=== PATIENT | male | born 1945 | race Caucasian/White ===

== ENCOUNTER 2017-05-15 23:08 | Observation (INO) | payer MEDICARE ==
[~2017-05-15] VITALS: Ht 172.7 cm; Wt 90.7 kg
--- NOTE | 2017-05-15 23:13 | ER Report ---
History and Physical Time Seen By MD: 23:12 HPI/ROS CHIEF COMPLAINT: Right lower quadrant abdominal pain HISTORY OF PRESENT ILLNESS: 71-year-old male presents ambulatory to the ER complaining of abdominal pain since last night. He delivers paper route. He was unable to go last night. He presents to the ER tonight after several episodes of vomiting and dry heaves. He denies fever or chills. He denies dysuria, frequency or hematuria. REVIEW OF SYSTEMS: Respiratory: No cough, no dyspnea. Cardiovascular: No chest pain, no palpitations. Gastrointestinal: As above Musculoskeletal: No back pain. Allergies: Uncoded Allergies: TRILANE (Allergy, Unknown, 05/15/17) Home Meds Active Scripts Amoxicillin/Pot Clav 875-125 Mg Tab (AUGMENTIN 875-125 TABLET) 1 Each Tablet, 1 TAB PO Q12H, #4 TAB Prov:ANYA IRVIN MD 05/16/17 Hydrocodone Bit/Acetaminophen (NORCO 5-325 TABLET) 1 Each Tablet, 1 EACH PO Q4H Y for PAIN, #30 TAB Prov:ANYA IRVIN MD 05/16/17 Ketorolac Tromethamine (KETOROLAC TROMETHAMINE) 10 Mg Tab, 10 MG PO Q6H, #12 TAB Prov:ANYA IRVIN MD 05/16/17 Reported Medications Albuterol Sulfate (PROVENTIL HFA) 6.7 Gm Inh, 1-2 PUFF INH 3-4XD, INH 05/16/17 Ibuprofen (IBUPROFEN) 200 Mg Capsule, 1 CAP PO Q6H, CAPSULE 05/15/17 Fluticasone/Salmeterol (ADVAIR 100-50 DISKUS) 1 Each Disk.w.dev, 1 EACH IH 05/15/17 Reviewed Nurses Notes: Yes Old Medical Records Reviewed: Yes Constitutional Vital Sign - Last 24 Hours 05/15/17 05/15/17 05/15/17 05/15/17 23:08 23:18 23:19 23:23 Temp 98.7 Pulse ??? 89 83 Resp 20 B/P (MAP) 130/91 (104) 130/91 Pulse Ox 93 93 O2 Delivery Room Air 05/15/17 05/15/17 05/15/17 05/16/17 23:38 23:39 23:53 00:00 Pulse 87 183 Resp 29 16 B/P (MAP) 145/72 (96) 127/76 (93) Pulse Ox 95 91 05/16/17 05/16/17 05/16/17 05/16/17 00:05 00:08 00:20 00:40 Pulse 89 Resp 29 B/P (MAP) 124/73 (90) ???/??? (1665) 131/80 (97) Pulse Ox 95 05/16/17 05/16/17 05/16/17 00:43 00:58 01:00 Pulse 89 ??? Resp 30 14 B/P (MAP) 122/72 (89) Pulse Ox 96 100 Physical Exam General Appearance: The patient is alert, has no immediate need for airway protection and no current signs of toxicity. Eyes: Pupils equal and round no injection. Respiratory: Chest is non tender, lungs are clear to auscultation. Cardiac: regular rate and rhythm Gastrointestinal: Abdomen is moderate right lower quadrant tenderness, positive rebound and guarding no masses, bowel sounds normal. Musculoskeletal: Neck: Neck is supple and non tender. Extremities have full range of motion and are non tender. Skin: No rashes or lesions. DIFFERENTIAL DIAGNOSIS: After history and physical exam differential diagnosis was considered for abdominal pain including but not limited to appendicitis, cholecystitis, gastritis and urinary tract infection. Medical Decision Making Data Points Result Diagram: 05/15/17232805/15/172328 Laboratory Hematology Test 05/15/17 23:29 Red Blood Count 5.91 M/uL (4.00-5.60) Mean Corpuscular Volume 87.7 fL (80.0-96.0) Mean Corpuscular Hemoglobin 29.7 pg (26.0-33.0) Mean Corpuscular Hemoglobin Concent 33.9 g/dL (32.0-36.0) Red Cell Distribution Width 12.9 % (11.5-14.5) Mean Platelet Volume 8.3 fL (7.2-11.1) Neutrophils (%) (Auto) 81.1 % (39.4-72.5) Lymphocytes (%) (Auto) 9.3 % (17.6-49.6) Monocytes (%) (Auto) 9.3 % (4.1-12.4) Eosinophils (%) (Auto) 0.0 % (0.4-6.7) Basophils (%) (Auto) 0.3 % (0.3-1.4) Nucleated RBC Relative Count (auto) 0.0 /100WBC Neutrophils # (Auto) 19.7 K/uL (2.0-7.4) Lymphocytes # (Auto) 2.3 K/uL (1.3-3.6) Monocytes # (Auto) 2.3 K/uL (0.3-1.0) Eosinophils # (Auto) 0.0 K/uL (0.0-0.5) Basophils # (Auto) 0.1 K/uL (0.0-0.1) Nucleated RBC Absolute Count (auto) 0.01 K/uL Peripheral Blood Smear Yes Y/N Urine Color [place] Urine Clarity Slightly-cloudy Urine pH 5.0 pH (4.8-9.5) Urine Specific [place] 1.026 Urine Protein 30 mg/dL (NEGATIVE) Urine Glucose (UA) Negative mg/dL (NEGATIVE) Urine Ketones Negative mg/dL (NEGATIVE) Urine Blood Negative (NEGATIVE) Urine Nitrite Negative (NEGATIVE) Urine Bilirubin Negative (NEGATIVE) Urine Urobilinogen Negative mg/dL (0.2-1.9) Urine Leukocyte Esterase Trace (NEGATIVE) Urine RBC None /HPF (0-2/HPF) Urine WBC 6 /HPF (0-5/HPF) Urine Squamous Epithelial Cells Few /LPF (</=FEW) Urine Bacteria Few /HPF (NONE-FEW) Urine Hyaline Casts Many /LPF (NONE-FEW) Urine Mucus Few /HPF (NONE-FEW) Sodium Level 135 mmol/L (137-145) Potassium Level 4.1 mmol/L (3.5-5.0) Chloride Level 103 mmol/L (98-107) Carbon Dioxide Level 18 mmol/L (22-30) Blood Urea Nitrogen 18 mg/dl (9-21) Creatinine 1.30 mg/dl (0.66-1.25) Glomerular Filtration Rate Calc 54.1 Random Glucose 142 mg/dl (75-110) Lactate 1.9 mmol/L (0.7-2.1) Calcium Level 9.4 mg/dl (8.4-10.2) Total Bilirubin 2.0 mg/dl (0.2-1.3) Aspartate Amino Transf (AST/SGOT) 22 U/L (0-35) Alanine Aminotransferase (ALT/SGPT) 37 U/L (0-56) Alkaline Phosphatase 95 U/L (0-126) C-Reactive Protein 15.9 mg/dl (<1.0) Total Protein 7.4 gm/dl (6.3-8.2) Albumin 4.2 g/dl (3.5-5.0) Amylase Level 69 U/L (0-110) Lipase 257 U/L (23-300) Chemistry Test 05/15/17 23:29 White Blood Count 24.3 k/uL (4.5-11.0) Red Blood Count 5.91 M/uL (4.00-5.60) Hemoglobin 17.5 g/dL (14.0-18.0) Hematocrit 51.8 % (42.0-52.0) Mean Corpuscular Volume 87.7 fL (80.0-96.0) Mean Corpuscular Hemoglobin 29.7 pg (26.0-33.0) Mean Corpuscular Hemoglobin Concent 33.9 g/dL (32.0-36.0) Red Cell Distribution Width 12.9 % (11.5-14.5) Platelet Count 249 K/uL (150-450) Mean Platelet Volume 8.3 fL (7.2-11.1) Neutrophils (%) (Auto) 81.1 % (39.4-72.5) Lymphocytes (%) (Auto) 9.3 % (17.6-49.6) Monocytes (%) (Auto) 9.3 % (4.1-12.4) Eosinophils (%) (Auto) 0.0 % (0.4-6.7) Basophils (%) (Auto) 0.3 % (0.3-1.4) Nucleated RBC Relative Count (auto) 0.0 /100WBC Neutrophils # (Auto) 19.7 K/uL (2.0-7.4) Lymphocytes # (Auto) 2.3 K/uL (1.3-3.6) Monocytes # (Auto) 2.3 K/uL (0.3-1.0) Eosinophils # (Auto) 0.0 K/uL (0.0-0.5) Basophils # (Auto) 0.1 K/uL (0.0-0.1) Nucleated RBC Absolute Count (auto) 0.01 K/uL Peripheral Blood Smear Yes Y/N Urine Color [place] Urine Clarity Slightly-cloudy Urine pH 5.0 pH (4.8-9.5) Urine Specific [place] 1.026 Urine Protein 30 mg/dL (NEGATIVE) Urine Glucose (UA) Negative mg/dL (NEGATIVE) Urine Ketones Negative mg/dL (NEGATIVE) Urine Blood Negative (NEGATIVE) Urine Nitrite Negative (NEGATIVE) Urine Bilirubin Negative (NEGATIVE) Urine Urobilinogen Negative mg/dL (0.2-1.9) Urine Leukocyte Esterase Trace (NEGATIVE) Urine RBC None /HPF (0-2/HPF) Urine WBC 6 /HPF (0-5/HPF) Urine Squamous Epithelial Cells Few /LPF (</=FEW) Urine Bacteria Few /HPF (NONE-FEW) Urine Hyaline Casts Many /LPF (NONE-FEW) Urine Mucus Few /HPF (NONE-FEW) Glomerular Filtration Rate Calc 54.1 Lactate 1.9 mmol/L (0.7-2.1) Calcium Level 9.4 mg/dl (8.4-10.2) Total Bilirubin 2.0 mg/dl (0.2-1.3) Aspartate Amino Transf (AST/SGOT) 22 U/L (0-35) Alanine Aminotransferase (ALT/SGPT) 37 U/L (0-56) Alkaline Phosphatase 95 U/L (0-126) C-Reactive Protein 15.9 mg/dl (<1.0) Total Protein 7.4 gm/dl (6.3-8.2) Albumin 4.2 g/dl (3.5-5.0) Amylase Level 69 U/L (0-110) Lipase 257 U/L (23-300) Urinalysis Test 05/15/17 23:29 Urine Color [place] Urine Clarity Slightly-cloudy Urine pH 5.0 pH (4.8-9.5) Urine Specific [place] 1.026 Urine Protein 30 mg/dL (NEGATIVE) Urine Glucose (UA) Negative mg/dL (NEGATIVE) Urine Ketones Negative mg/dL (NEGATIVE) Urine Blood Negative (NEGATIVE) Urine Nitrite Negative (NEGATIVE) Urine Bilirubin Negative (NEGATIVE) Urine Urobilinogen Negative mg/dL (0.2-1.9) Urine Leukocyte Esterase Trace (NEGATIVE) Urine RBC None /HPF (0-2/HPF) Urine WBC 6 /HPF (0-5/HPF) Urine Squamous Epithelial Cells Few /LPF (</=FEW) Urine Bacteria Few /HPF (NONE-FEW) Urine Hyaline Casts Many /LPF (NONE-FEW) Urine Mucus Few /HPF (NONE-FEW) ED Course/Re-evaluation Clinical Indication for ER IV: Hydration, IV Access ED Course Patient was admitted to an examination room. H&P was done. The differential diagnoses was considered. On clinical examination. Patient has right lower quadrant tenderness with rebound and guarding. His diagnostic studies returned with elevated white blood cell count. He is hydrated with normal saline, Zofran , all 50 pg 2. His pain still require significant control receives 1 mg of Dilaudid. CAT scan shows pulmonary reading of an appendicitis. Patient's given Zosyn 3.375 g IV. 05/16/2017 1:05:22 am case discussed with Dr. Irvin on-call general surgery who will come see the patient. Dr. Irvin requests a OR crew be called in Decision to Disposition Date: May 16, 2017 Decision to Disposition Time: 00:39 Depart Departure Latest Vital Signs Vital Signs Date Time Temp Pulse Resp B/P (MAP) Pulse Ox O2 Delivery O2 Flow Rate FiO2 05/16/17 01:00 122/72 (89) 05/16/17 00:58 ??? 14 100 05/15/17 23:19 98.7 Room Air Impression: Primary Impression: Appendicitis Condition: Improved Disposition: ADMIT FROM ER TO OR New Scripts Amoxicillin/Pot Clav 875-125 Mg Tab (AUGMENTIN 875-125 TABLET) 1 Each Tablet 1 TAB PO Q12H, #4 TAB Prov: ANYA IRVIN MD 05/16/17 Hydrocodone Bit/Acetaminophen (NORCO 5-325 TABLET) 1 Each Tablet 1 EACH PO Q4H Y for PAIN, #30 TAB Prov: ANYA IRVIN MD 05/16/17 Ketorolac Tromethamine (KETOROLAC TROMETHAMINE) 10 Mg Tab 10 MG PO Q6H, #12 TAB Prov: ANYA IRVIN MD 05/16/17 Problem Qualifiers Primary Impression: Appendicitis Appendicitis type: acute appendicitis Acute appendicitis type: with localized peritonitis Qualified Codes: K35.3 - Acute appendicitis with localized peritonitis MICHAEL AGUIRRE DO May 15, 2017 23:13
[2017-05-15] MEDS ORDERED: NS(*) 0.9% 1000 ML BAG 1,000 ML IV ONE (23:29)
[2017-05-15] MEDS ORDERED: ONDANSETRON 4 MG/2 ML VIAL IVP ONE (23:30)
[2017-05-15] MEDS ORDERED: fentaNYL CITR 100 MCG/2 ML AMP IVP ONE (23:30)
[2017-05-15] MEDS ORDERED: FLUT1DIS27 IH (23:34)
[2017-05-15 23:36] LABS: PLATELET COUNT, AUTOMATED 249 K/uL (150-450)
[2017-05-15] MEDS ORDERED: IBUP200C71 PO (23:43)
[2017-05-16] VITALS (10 sets, daily range): BP systolic 100–118; BP diastolic 57–71; Ht 172.7 cm; Wt 90.7 kg
[2017-05-16] MEDS ORDERED: NS 0.9% 20 ML SDV 60 ML ONE (00:03)
[2017-05-16] MEDS ORDERED: IOPAMIDOL 76% 75 ML INFUS BTL 75 ML ONE (00:03)
[2017-05-16] MEDS ORDERED: fentaNYL CITR 100 MCG/2 ML AMP IVP ONE (00:05)
[2017-05-16] MEDS ORDERED: NORMOSOL R SOLN(*) 1000 ML BAG 1,000 ML IV ONE (00:45)
[2017-05-16] MEDS ORDERED: PIPERACILLIN/TAZO*3.375GM VIAL 3.375 GM in NS(*) 0.9% 100 ML ADDVANT BAG 100 ML IVPB ONE (00:45)
[2017-05-16] MEDS ORDERED: HYDROmorphone(ER ONLY) 1 MG/ML IVP ONE (00:45)
--- NOTE | 2017-05-16 01:04 | RADIOLOGY IMAGING REPORT ---
FACILITY: [facility] - [place] PATIENT NAME: Dileep Marques : 1945 MR: [id number] V: [id number] EXAM DATE: ORDERING PHYSICIAN: MICHAEL AGUIRRE TECHNOLOGIST: Location: [facility] - [place] Patient: Dileep Marques : 1945 Visit/Account:[id number] Date of Sevice: 05/15/2017 ABDOMEN/PELVIS WITH CONTRAST HISTORY: Right lower quadrant pain TECHNIQUE: Axial images were obtained through the abdomen and pelvis with intravenous contrast . One of the following dose optimization techniques was utilized in the performance of this exam: automate d exposure control; adjustment of the mA and/or kv according to patient size; or use of iterative rec onstruction technique. Specific details can be referenced in the facility's radiology CT exam operati onal policy. CONTRAST: 75 cc of Isovue-370 COMPARISON: None. FINDINGS: Visualized lung bases: Negative. Hepatobiliary: Negative. Spleen: Negative. Adrenals: Negative. Pancreas: Negative. Kidneys/ureters/bladder: Simple peripelvic and cortical cysts. Bowel/peritoneum/mesentery: Appendix is abnormal. It measures 15 mm in diameter with thick enhancing wall and extensive stranding of the surrounding fat. Thickening of the tip of the cecum noted. No fr ee air or abscess. Colonic diverticulosis noted. Vessels: Negative. Lymph nodes: Negative. Pelvic genitourinary: Negative. Bones/body wall: Negative. Other findings: None significant IMPRESSION: 1. Acute appendicitis. No evidence of free air or abscess. Results were called to MICHAEL AGUIRRE at 05/16/2017 12:59 AM. Report Dictated By: Samson Pichardo MD at 05/16/2017 12:54 AM Report E-Signed By: Samson Pichardo MD at 05/16/2017 12:59 AM WSN:[email or web address]
[2017-05-16] MEDS ORDERED: ALB6.7R INH (01:26)
--- NOTE | 2017-05-16 01:28 | General Surgery 1 H&P ---
History of Present Illness Chief Complaint right lower quadrant pain History of Present Illness 71 yo male with a history of asthma presents with a 30 hour history of right lower quadrant pain. it is a steady pain that has increased in intensity. it is worse with movement. he has nausea and vomiting. no urinary complaints. no change in bms. seen in ed. wbc elevated to 24,[address] suggests appendicitis. History Other Past Surgeries: colonoscopy and hemorrhoidectomy Home Meds Reported Medications Ibuprofen (IBUPROFEN) 200 Mg Capsule, 1 CAP PO Q6H, CAPSULE 05/15/17 Fluticasone/Salmeterol (ADVAIR 100-50 DISKUS) 1 Each Disk.w.dev, 1 EACH IH 05/15/17 Allergies: Uncoded Allergies: TRILANE (Allergy, Unknown, 05/15/17) Review of Systems History of Hypertension?: No History of Diabetes?: No History of DVT?: No Obstructive Sleep Apnea?: No History of Liver Disease?: No History of Kidney Disease?: No Respiratory: Reports Other (astna) : Denies Dysuria, Denies Other Exam Vital Signs Date Time Temp Pulse Resp B/P (MAP) Pulse Ox O2 Delivery O2 Flow Rate FiO2 05/16/17 01:24 99.2 05/16/17 00:08 89 29 95 05/16/17 00:05 124/73 (90) 05/15/17 23:19 Room Air General Appearance: Alert, Awake Cardiovascular: Regular Rate and Rhythm Respiratory: Clear to Auscultation GI: Other (tender with guarding in the rigth lower quadrant) Medical Decision Making Data Points Result Diagram: 05/15/175 05/15/172328 Assessment and Plan Problems: (1) Appendicitis Status: Acute Assessment & Plan: laparoscopic appendectomy Copies to: ANYA LUNA MD Venous Thromboembolism Antithrombotics Is Pt On Any Antithrombotics?: No Problem Qualifiers (1) Appendicitis: Appendicitis type: acute appendicitis Acute appendicitis type: with localized peritonitis Qualified Codes: K35.3 - Acute appendicitis with localized peritonitis ANYA LUNA MD May 16, 2017 01:28
[2017-05-16] MEDS ORDERED: NORMOSOL R SOLN(*) 1000 ML BAG 1,000 ML IV PRN (01:29)
--- NOTE | 2017-05-16 01:29 | Post Operative Progress Note ---
Post Operative Progress Note Date: May 16, 2017 Time: 02:53 Surgeon: desi Anesthesia: dr schumacher Pre-Op Diagnosis: appendicitis Post-Op Diagnosis: same Procedure(s): ANYA Yee MD May 16, 2017 01:29
[2017-05-16] MEDS ORDERED: ROPIVACAINE 0.2% 20 ML VIAL ONE (01:30)
[2017-05-16] MEDS ORDERED: MORPHINE 1 MG/ML 30 ML PCA IV PRN (01:30)
[2017-05-16] MEDS ORDERED: ONDANSETRON 4 MG/2 ML VIAL IVP PRN (01:30)
[2017-05-16] MEDS ORDERED: DEXAMETHASONE SOD 4 MG/ML VIAL ONE (01:40)
[2017-05-16] MEDS ORDERED: SUGAMMADEX SOD 200 MG/2 ML SDV ONE (01:40)
[2017-05-16] MEDS ORDERED: ROCURONIUM BROM 10 MG/ML 10 ML ONE (01:40)
[2017-05-16] MEDS ORDERED: LIDOCAINE MPF 1% 5 ML VIAL ONE (01:40)
[2017-05-16] MEDS ORDERED: PROPOFOL EMUL(*) 10MG/ML 20 ML 20 ML ONE (01:40)
[2017-05-16] MEDS ORDERED: fentaNYL CITR 250 MCG/5 ML AMP ONE (01:40)
[2017-05-16] MEDS ORDERED: PIPERACILLIN/TAZO*3.375GM VIAL 3.375 GM in NS(*) 0.9% 100 ML ADDVANT BAG 100 ML IVPB SCH (06:00)
[2017-05-16] MEDS ORDERED: KETOROLAC 30 MG/ML VIAL IVP SCH (06:00)
--- NOTE | 2017-05-16 10:05 | General Surgery Progress Note ---
Subjective Progress Notes Subjective slept well, tolerated breakfast, ambulating well, voided, pain controlled Physical Exam Vital Signs Date Time Temp Pulse Resp B/P (MAP) Pulse Ox O2 Delivery O2 Flow Rate FiO2 05/16/17 07:51 14 95 05/16/17 07:49 97.5 05/16/17 07:44 Nasal Cannula 1.0 05/16/17 07:30 104/59 (74) 05/16/17 07:15 57 Intake and Output 05/17/17 07:00 Intake Total 0 ml Balance 0 ml Intake Oral 0 ml # Voids 1 General Appearance: Alert, Awake GI: Soft and Non-Tender Result Diagram: 05/15/17232805/15/172328 Assessment and Plan Problems: (1) Appendicitis Status: Acute Assessment & Plan: laparoscopic appendectomy 05/16/17 doing well home today Exam Sepsis Risk: No Definite Risk Problem Qualifiers (1) Appendicitis: Appendicitis type: acute appendicitis Acute appendicitis type: with localized peritonitis Qualified Codes: K35.3 - Acute appendicitis with localized peritonitis ANYA LUNA MD May 16, 2017 10:05
[2017-05-16] MEDS ORDERED: AMOX-559 PO (10:07)
[2017-05-16] MEDS ORDERED: KET10 PO (10:07)
[2017-05-16] MEDS ORDERED: HYDR-4309 PO (10:07)
--- NOTE | 2017-05-16 10:08 | Short(Outpt) Discharge Summary ---
Discharge Summary Reason for Hosp/Final Diag: (1) Appendicitis Status: Acute Hospital Course & Plan: laparoscopic appendectomy 05/16/17 doing well home today Departure Discharge to: Home Discharge Instructions Home Meds Active Scripts Amoxicillin/Pot Clav 875-125 Mg Tab (AUGMENTIN 875-125 TABLET) 1 Each Tablet, 1 TAB PO Q12H, #4 TAB Prov:ANYA LUNA MD 05/16/17 Hydrocodone Bit/Acetaminophen (NORCO 5-325 TABLET) 1 Each Tablet, 1 EACH PO Q4H Y for PAIN, #30 TAB Prov:ANYA LUNA MD 05/16/17 Ketorolac Tromethamine (KETOROLAC TROMETHAMINE) 10 Mg Tab, 10 MG PO Q6H, #12 TAB Prov:ANYA LUNA MD 05/16/17 Reported Medications Albuterol Sulfate (PROVENTIL HFA) 6.7 Gm Inh, 1-2 PUFF INH 3-4XD, INH 05/16/17 Ibuprofen (IBUPROFEN) 200 Mg Capsule, 1 CAP PO Q6H, CAPSULE 05/15/17 Fluticasone/Salmeterol (ADVAIR 100-50 DISKUS) 1 Each Disk.w.dev, 1 EACH IH 05/15/17 Diet: Regular Activity: As Tolerated Special Instructions: remove bandage and shower tomorrow, to see me in one week, call [phone] for apt Problem Qualifiers (1) Appendicitis: Appendicitis type: acute appendicitis Acute appendicitis type: with localized peritonitis Qualified Codes: K35.3 - Acute appendicitis with localized peritonitis ANYA LUNA MD May 16, 2017 10:08
--- NOTE | 2017-05-16 13:27 | OPERATIVE REPORT 1 ---
EVENT DATE: May 16, 2017 SURGEON: Richie Irvin MD ANESTHESIOLOGIST: Juan Manuel Hopson MD ANESTHESIA: General. PREOPERATIVE DIAGNOSIS Acute appendicitis. POSTOPERATIVE DIAGNOSIS Acute appendicitis. PROCEDURE PERFORMED Laparoscopic appendectomy. DESCRIPTION OF PROCEDURE The patient was placed in the supine position and given general anesthetic. His abdomen was prepped and draped in a sterile fashion. We anesthetized the skin with 0.2% ropivacaine. I made a small incision above the umbilicus, inserted a Veress needle, and insufflated the abdomen with CO2. We placed a 5 mm port under direct vision. We then placed a 5 mm in the left lower quadrant and a 10 mm in the suprapubic region under direct vision. He had some greenish ascitic fluid in the pelvis. This was suctioned out. We went to the right lower quadrant, placed the patient in Trendelenburg, and rotated to the left. We identified an acutely inflamed appendix. The mesoappendix was divided with the Harmonic scalpel to the appendiceal-cecal junction. We placed an 0 chromic Endoloop there. We then placed two 0 Vicryl sutures distal to this and cut between those. We placed the appendix in an Endo Pouch and removed it from the field. We suctioned, irrigated, and inspected for bleeding. We had perfect hemostasis. The ports were removed under direct vision. No bleeding was noted. We had to place one stitch in the fascia at the suprapubic site because we had to stretch the fascia to get the appendix out. This was closed with an 0 Vicryl. The skin was then closed with an interrupted 4-0 Maxon. Steri- Strips and an Airstrip were placed. The patient tolerated the procedure well. No apparent complications. [facility]
== END 2017-05-16 12:50 | disposition home or self-care (01) ==
LOC: ER 23:23 → OR 05-16 01:05 → MED 05-16 03:40 → INTOOBSV 05-16 03:40
PROVIDERS: ADMIT Surgery; ATTEND Surgery
DX: K35.3 Acute appendicitis with localized peritonitis (principal)
CPT/HCPCS: 44970; 74177; 81001; 82150; 83605; 83690; 85025; 86140; 88304; 96361; 96365; 96375; 99284; G0378; J1100; J1170; J1885; J2001; J2270; J2405; J2543; J2704; J2795; J3010; J7030; J7050; Q9967; 82040; 82247; 82310; 82374; 82435; 82565; 82947; 84075; 84132; 84155; 84295; 84450; 84460; 84520

== ENCOUNTER → 2017-06-24 | Outpatient (CLI) | payer MEDICARE ==
[2017-05-16 10:52] VITALS: BMI 30.4
[~2017-06-24] MED LIST: ALB6.7R INH; AMOX-559 PO; FLUT1DIS27 IH; HYDR-4309 PO; IBUP200C71 PO; KET10 PO; PANT40TA65 PO
--- NOTE | 2017-06-24 17:10 | RADIOLOGY IMAGING REPORT ---
[place] [facility] [place]: Dileep Marques : 1945 MR: [id number] V: [id number] EXAM DATE: ORDERING PHYSICIAN: MIKA OROZCO TECHNOLOGIST: Location: [facility] - [place] Patient: Dileep Marques : 1945 Visit/Account:[id number] Date of Sevice: 06/24/2017 Exam type: THORACIC SPINE 3 VIEWS History: back pain Comparison: None. Findings: There are mild multilevel spondylotic changes of the thoracic spine. There is no evidence of acute f ractures or subluxations. IMPRESSION: 1. Mild multilevel spondylotic changes of the thoracic spine. No evidence of acute fractures or sub luxations. If patient's symptoms persist CT or MR may be helpful Report Dictated By: Marisa Tesfaye MD at 06/24/2017 4:51 PM Report E-Signed By: Marisa Tesfaye MD at 06/24/2017 4:52 PM [email or web address]
== END ==
LOC: RAD 15:52
PROVIDERS: ATTEND Internal Medicine
DX: M47.894 Other spondylosis, thoracic region (principal)
CPT/HCPCS: 72072

== ENCOUNTER → 2017-07-01 | Outpatient (CLI) | payer MEDICARE ==
[2017-05-16 10:52] VITALS: BMI 30.4
[2017-07-01 08:26] LABS: PLATELET COUNT, AUTOMATED 228 K/uL (150-450)
[2017-07-01 08:50] LABS: LDL CHOLESTEROL 114 mg/dl
== END ==
LOC: LAB 07:41
PROVIDERS: ATTEND Internal Medicine
DX: Z12.5 Encounter for screening for malignant neoplasm of prostate (principal); R20.0 Anesthesia of skin; M54.6 Pain in thoracic spine; K21.9 Gastro-esophageal reflux disease without esophagitis; R73.09 Other abnormal glucose
CPT/HCPCS: 36415; 81001; 82607; 82746; 83036; 84443; 85025; G0103; 82040; 82247; 82310; 82374; 82435; 82465; 82565; 82947; 83718; 84075; 84132; 84153; 84155; 84295; 84450; 84460; 84478; 84520